=== PATIENT | female | born 1970 | race Caucasian/White ===

== ENCOUNTER 2016-11-05 13:52 | Outpatient (CLI) ==
[2015-12-09 17:20] VITALS: BMI 23.0
[2016-11-05 15:01] LABS: ERYTHROCYTE SEDIMENTATION RATE 21 mm/hr (0-20); ESR INTERNAL QC INTERNAL QC VALID
[2016-11-05 15:52] LABS: ALBUMIN 4.2 g/dL (3.4-5.0); ALBUMIN/GLOBULIN RATIO 1.27; ANION GAP 14.1; BILIRUBIN,TOTAL 0.33 mg/dL (0.00-1.20); BUN/CREATININE RATIO 19.76; CALCIUM 9.9 mg/dL (8.2-10.2); CHOL/HDL RATIO 5.4 (4.5-5.5); CREATININE 0.86 mg/dL (0.60-1.30); FOLATE 15.2 ng/mL (3.1-20.5); MAGNESIUM 2.3 mg/dL (1.7-2.2); POTASSIUM 4.1 mmol/L (3.5-5.10); TOTAL PROTEIN 7.5 g/dL (6.4-8.2)
[2016-11-06 08:30] LABS: RHEUMATOID ARTHRITIS FACTOR < 10.0 IU/mL (0.0-13.9)
[2016-11-07 08:34] LABS: ANTI-NUCLEAR ANTIBODY SCREEN Negative (Negative)
== END 2016-11-05 13:53 | disposition home or self-care (01) ==
LOC: LAB 13:52
PROVIDERS: ATTEND Psychiatry & Neurology Neurology
DX: G43.119 Migraine with aura, intractable, without status migrainosus (principal)
CPT/HCPCS: 36415; 80053; 80061; 82607; 82746; 83735; 84439; 85651; 86038; 86430

== ENCOUNTER 2016-12-13 13:57 | Outpatient (CLI) ==
[2015-12-09 17:20] VITALS: BMI 23.0
[2016-12-13 14:35] LABS: BASOPHILS % (AUTO) 0.2 % (0.0-3.0); EOSINOPHILS % (AUTO) 0.3 % (0.0-7.0); HEMATOCRIT 37.9 % (37.0-47.0); IMMATURE GRANULOCYTE % (AUTO) 0.3 % (0.0-5.0); LYMPHOCYTES # (AUTO) 1.4 K/uL (0.60-3.4); LYMPHOCYTES % (AUTO) 14.6 (10.0-50.0); MEAN CORPUSCULAR HEMOGLOBIN 31.6 pg (27.0-31.0); MEAN CORPUSCULAR HGB CONC 34.3 (31.8-35.4); MONOCYTES # (AUTO) 0.3 K/uL (0.4-2.0); MONOCYTES % (AUTO) 2.7 (0-10); NEUTROPHILS # (AUTO) 7.9 K/ul (2.0-6.9); NEUTROPHILS % (AUTO) 81.9; PLATELET COUNT 204 10^3/uL (140-440); RED BLOOD COUNT 4.12 10^6/ul (4.20-5.40); WHITE BLOOD COUNT 9.63 K/ul (4.6-10.2)
--- NOTE | 2016-12-13 14:53 | CT ---
EXAM: CT chest without contrast HISTORY: Pain and shortness of breath with cough with pain localized to shoulder blades. COMPARISON: Chest x-ray 05/17/[address] abdomen 02/06/2016 TECHNIQUE: Serial axial images of the chest were obtained from the lung apices to the upper abdomen without contrast. These were viewed in multiple planes. FINDINGS: The thyroid is normal. The visualized vessels are unremarkable without aneurysm or steno sis. The heart is normal in size without pericardial effusion. There are nonpathologically enlarge d mediastinal or hilar lymph nodes. There is no pneumothorax or pleural effusion. Calcified granuloma is noted in the right upper lobe on image 31. Subsegmental right basilar atelectasis is present. Left upper lobe calcified granulom a is present. Ground-glass 2 mm nodule in the right upper lobe is noted on image 26. The airways ar e patent. No acute consolidation, ground-glass or mass is identified. Soft tissues in the upper abdomen demonstrate prior cholecystectomy. There is mild atherosclerotic disease present. The osseous structures are unremarkable. IMPRESSION: 1. No acute cardiopulmonary process or consolidation is identified. 2. 2 mm ground-glass nodule in the right upper lobe is likely postinflammatory with minimal subsegm ental right basilar atelectasis. 3. Prior cholecystectomy.
[2016-12-13 15:22] LABS: ALBUMIN 3.9 g/dL (3.4-5.0); ALBUMIN/GLOBULIN RATIO 1.15; ANION GAP 12.2; BILIRUBIN,TOTAL 0.25 mg/dL (0.00-1.20); BUN/CREATININE RATIO 13.75; CALCIUM 9.2 mg/dL (8.2-10.2); CHOL/HDL RATIO 5.6 (4.5-5.5); CREATININE 0.8 mg/dL (0.60-1.30); POTASSIUM 4.2 mmol/L (3.5-5.10); TOTAL PROTEIN 7.3 g/dL (6.4-8.2)
== END 2016-12-13 13:58 | disposition home or self-care (01) ==
LOC: RAD 13:57
PROVIDERS: ATTEND Emergency Medicine
DX: R06.02 Shortness of breath (principal); R52 Pain, unspecified; E78.5 Hyperlipidemia, unspecified; I65.29 Occlusion and stenosis of unspecified carotid artery
CPT/HCPCS: 36415; 80053; 80061; 82306; 82607; 83036; 84443; 85025

== ENCOUNTER 2016-12-14 14:03 | Outpatient (CLI) ==
[2015-12-09 17:20] VITALS: BMI 23.0
--- NOTE | 2016-12-14 16:07 | CT ---
EXAM: CT thoracic spine without contrast HISTORY: Back pain COMPARISON: None TECHNIQUE: CT thoracic spine performed without intravenous contrast. Coronal and sagittal reformat phoebe images obtained. FINDINGS: Bones appear demineralized. The vertebral bodies normal height. No fracture. No sublux ation. Mild chronic multilevel discogenic degenerative disease with multilevel intervertebral disc space narrowing and mild multilevel marginal osteophyte formation. Central canal grossly patent. Th ere is mild atherosclerosis. There is granulomatous calcification noted. IMPRESSION: 1. No fracture or subluxation. 2. Mild chronic discogenic degenerative disease. 3. Bones appear demineralized
== END 2016-12-14 14:04 | disposition home or self-care (01) ==
LOC: RAD 14:03
PROVIDERS: ATTEND Emergency Medicine
DX: R06.02 Shortness of breath (principal); M54.9 Dorsalgia, unspecified

== ENCOUNTER 2017-02-07 11:23 | Outpatient (CLI) ==
[2015-12-09 17:20] VITALS: BMI 23.0
--- NOTE | 2017-02-07 12:03 | DI ---
EXAM: Three x-rays of the right foot. Comparison: None available. Reason for exam: Pain. FINDINGS: No acute fracture or dislocation. The joint spaces are well maintained. No suspicious a ppearing calcific soft tissue densities. Impression: No acute fracture or dislocation in the right foot.
== END 2017-02-07 11:24 | disposition home or self-care (01) ==
LOC: LAB 11:23
PROVIDERS: ATTEND Emergency Medicine
DX: M79.671 Pain in right foot (principal)
CPT/HCPCS: 36415; 84550

== ENCOUNTER 2017-02-13 07:51 | Outpatient (CLI) ==
[2015-12-09 17:20] VITALS: BMI 23.0
--- NOTE | 2017-02-13 09:02 | CT ---
EXAM: CT cervical spine without contrast. HISTORY: Neck pain. COMPARISON: None available. TECHNIQUE: Multiple axial images of the cervical spine were obtained without intravenous contrast. Images were reformatted in the sagittal and coronal planes. FINDINGS: There is approximately 0.2 cm retrolisthesis of C4 on C5. The alignment is otherwise nor mal. There is straightening of the normal lordosis. Vertebral body heights are maintained. Disc h eights are grossly normal. No fracture identified. Paravertebral soft tissues are without acute ab normality. C2-3: No neural compromise. C3-4: Disc osteophyte formation, uncovertebral hypertrophy and facet arthropathy with mild neural f oraminal narrowing. C4-5: Disc osteophyte formation, uncovertebral hypertrophy and facet arthropathy with flattening of the ventral thecal sac and mild right and moderate left neural foraminal narrowing. C5-6: Disc osteophyte formation, uncovertebral hypertrophy and facet arthropathy with moderate neur al foraminal narrowing. C6-7: Disc osteophyte formation, uncovertebral hypertrophy and facet arthropathy with moderate left neural foraminal narrowing. C7-T1: No neural compromise. IMPRESSION: 1. No fracture. 2. Multilevel degenerative changes as described.
== END 2017-02-13 07:52 | disposition home or self-care (01) ==
LOC: RAD 07:51
PROVIDERS: ATTEND Emergency Medicine
DX: M54.2 Cervicalgia (principal)

== ENCOUNTER 2017-09-17 12:59 | Outpatient (CLI) ==
[2015-12-09 17:20] VITALS: BMI 23.0
[2017-09-17 13:30] LABS: BASOPHILS % (AUTO) 0.6 % (0.0-3.0); EOSINOPHILS # (AUTO) 0.3 K/ul (0.0-0.7); EOSINOPHILS % (AUTO) 4.3 % (0.0-7.0); HEMATOCRIT 40.1 % (37.0-47.0); HEMOGLOBIN 13.8 g/dl (12.0-16.0); IMMATURE GRANULOCYTE % (AUTO) 0.3 % (0.0-5.0); LYMPHOCYTES # (AUTO) 1.9 K/uL (0.60-3.4); LYMPHOCYTES % (AUTO) 28.2 (10.0-50.0); MEAN CORPUSCULAR HEMOGLOBIN 31.9 pg (27.0-31.0); MEAN CORPUSCULAR HGB CONC 34.4 (31.8-35.4); MEAN CORPUSCULAR VOLUME 92.8 fl (81.0-99.0); MONOCYTES # (AUTO) 0.3 K/uL (0.4-2.0); MONOCYTES % (AUTO) 4.6 (0-10); NEUTROPHILS # (AUTO) 4.2 K/ul (2.0-6.9); PLATELET COUNT 211 10^3/uL (140-440); RED BLOOD COUNT 4.32 10^6/ul (4.20-5.40)
[2017-09-17 14:09] LABS: ALBUMIN 3.7 g/dL (3.4-5.0); ALBUMIN/GLOBULIN RATIO 1.06; ANION GAP 13.6; BILIRUBIN,TOTAL 0.13 mg/dL (0.00-1.20); BUN/CREATININE RATIO 10.34; CALCIUM 9.5 mg/dL (8.2-10.2); CHOL/HDL RATIO 9.9 (4.5-5.5); CREATININE 0.87 mg/dL (0.60-1.30); POTASSIUM 4.6 mmol/L (3.5-5.10); TOTAL PROTEIN 7.2 g/dL (6.4-8.2)
--- NOTE | 2017-09-17 14:26 | CT ---
EXAM: CT chest without contrast HISTORY: 2 mm right lung nodule COMPARISON: 12/13/2016 TECHNIQUE: CT chest performed without intravenous contrast. Coronal and sagittal reformatted images obtained. FINDINGS: Thyroid and thoracic inlet appear normal. Heart normal in size. Coronary calcifications. No pericardial effusion. Aorta normal in caliber. Esophagus unremarkable. Evaluation for lymphad enopathy limited without contrast. No lymphadenopathy identified. Visualized portion upper abdomen demonstrates no acute abnormality. Patient status post cholecystectomy. No acute abnormalities of t he bones. Central airway patent. No airspace consolidation. No pleural effusion. No pneumothorax. Granulomatous calcification right lung. Stable 2 mm pulmonary nodule right lung image 28. Minimal 3 mm nodularity image 27 and coronal and 37 located in the bronchiole likely minimal mucous plugging IMPRESSION: 1. Stable 2 mm pulmonary nodule right lung image 28, likely post inflammatory. Additional granuloma tous calcification present. 2. Minimal 3 mm endobronchial nodularity right lung, likely minimal mucous plugging. Recommend CT ch est follow-up 6 months to ensure resolution. 3. No airspace consolidation.
== END 2017-09-17 13:00 | disposition home or self-care (01) ==
LOC: RAD 12:59
PROVIDERS: ATTEND Internal Medicine
DX: E78.5 Hyperlipidemia, unspecified (principal); F41.9 Anxiety disorder, unspecified; I10 Essential (primary) hypertension; R91.8 Other nonspecific abnormal finding of lung field
CPT/HCPCS: 36415; 80053; 80061; 82306; 82607; 83036; 84443; 85025

== ENCOUNTER 2018-01-02 12:50 | Outpatient (CLI) ==
[2015-12-09 17:20] VITALS: BMI 23.0
--- NOTE | 2018-01-02 13:26 | DI ---
EXAM: Two views of the right hip. History: Right hip pain and sciatica Findings: No acute fracture or dislocation. Right hip joint space is preserved. Nonspecific pelvic calcifications are probably phleboliths. Impression: No acute osseous abnormality and no significant degenerative joint disease of the right hip
--- NOTE | 2018-01-02 13:29 | DI ---
EXAM: Three views of the lumbar spine. History: Lower back pain. Comparison: CT lumbar spine 05/08/2016 Findings: Cholecystectomy clips. No acute fractures are seen. Bilateral L5 spondylolysis with 9 mm anterolisthesis of L5 on S1 measures slightly increased compared to the prior study. Moderate to sev ere disc space narrowing at L5-S1 also appears progressed. The other disc space heights are preserve d. Impression: L5 spondylolysis with worsening grade 1 to grade 2 spondylolisthesis of L5 on S1. Progre ssive degenerative disc disease at L5-S1.
== END 2018-01-02 12:51 | disposition home or self-care (01) ==
LOC: RAD 12:50
PROVIDERS: ATTEND Internal Medicine
DX: E78.5 Hyperlipidemia, unspecified (principal); E03.9 Hypothyroidism, unspecified; M54.41 Lumbago with sciatica, right side
CPT/HCPCS: 36415; 80053; 80061; 82607; 83036; 84443; 85025

== ENCOUNTER 2019-03-12 12:07 | Outpatient (CLI) ==
[2015-12-09 17:20] VITALS: BMI 23.0
== END 2019-03-12 12:08 | disposition home or self-care (01) ==
LOC: LAB 12:07
PROVIDERS: ATTEND Internal Medicine
DX: E78.5 Hyperlipidemia, unspecified (principal); I25.10 Atherosclerotic heart disease of native coronary artery without angina pectoris; R73.9 Hyperglycemia, unspecified; E03.9 Hypothyroidism, unspecified
CPT/HCPCS: 36415; 80053; 80061; 83036; 84439; 84443; 85025

== ENCOUNTER 2019-03-18 10:22 | Outpatient (CLI) ==
[2015-12-09 17:20] VITALS: BMI 23.0
--- NOTE | 2019-03-18 11:20 | US ---
EXAM: Carotid ultrasound HISTORY: Stenosis COMPARISON: None TECHNIQUE: Carotid ultrasound was performed using Duplex imaging with latif scale, color, and Doppler imaging performed. FINDINGS: Right carotid: There is mild atherosclerotic plaque in the common carotid and bulb/internal carotid artery. Peak systolic velocity measurement in the right internal carotid artery is 0.69 meters per s econd. End-diastolic velocity measurement in the right internal carotid artery is 0.33 meters per se cond. Right internal to common carotid artery peak systolic velocity ratio is 1.2. Flow in the righ t vertebral artery is antegrade. Left carotid: There is mild atherosclerotic plaque in the common carotid and bulb/internal carotid a rtery. Peak systolic velocity measurement in the left internal carotid artery is 0.75 meters per sec ond. End-diastolic velocity measurement in the left internal carotid artery is 0.37 meters per secon d. Left internal to common carotid artery peak systolic velocity ratio measures 1.5. Flow in the le ft vertebral artery is antegrade. IMPRESSION: 1. Right internal carotid: No evidence for greater than 50% stenosis 2. Left internal carotid: No evidence for greater than 50% stenosis
== END 2019-03-18 10:23 | disposition home or self-care (01) ==
LOC: RAD 10:22
PROVIDERS: ATTEND Internal Medicine
DX: I65.29 Occlusion and stenosis of unspecified carotid artery (principal)

== ENCOUNTER 2019-04-08 16:10 | Emergency (ER) ==
[2019-04-08 16:17] VITALS: BP 136/64; TEMP 98.2; BMI 22.4
--- NOTE | 2019-04-08 17:40 | ED.PDOC ---
General ED Provider: Dr. MADELEINE DEE Chief Complaint: Back Pain Stated Complaint: back pain Time Seen by Physician: 16:10 (seen with gerson at all times ) Mode of Arrival: Walk-In Information Source: Patient Exam Limitations: No limitations Primary Care Provider: YUSUF TOPETE Referred to ED by: Other (ALSO C/O SORE THROAT, COUGH, CONGESTION ) Nursing and Triage Documentation Reviewed and Agree: Yes Does patient meet sepsis criteria?: No System Inflammatory Response Syndrome: Not Applicable Sepsis Protocol: For patient's 13 years and over: Temp is 96.8 and below OR 101 and greater Pulse >90 BPM Resp >20/minute Acutely Altered Mental Status Are patient's symptoms suggestive of a new infection, such as: -Pneumonia -Skin, Soft Tissue -Endocarditis -UTI -Bone, Joint Infection -Implantable Device -Acute Abdominal Infection -Wound Infection -Meningitis -Blood Stream Catheter Infection -Unknown Musculoskeletal Complaint Exam - Back Pain Complaint/Exam Mechanism of Injury: Reports: No known trauma Onset/Duration: 16:10 Symptoms Are: Still present Timing: Constant Episodes Lasting: Minutes Initial Severity: Mild Current Severity: Mild Location: Reports: Discrete Character: Reports: Dull, Aching Aggravating: Reports: None Alleviating: Reports: Rest Associated Signs and Symptoms: Denies: Swelling, Redness, Bruising, Fever, Weakness, Numbness, Tingling, Abdominal pain, Flank pain, Bladder incontinence, Bowel incontinence, Weight loss, Pain with weight bearing Related History: Reports: Similar episode TAD Risk Factors: Reports: None AAA Risk Factors: Reports: None Cauda Equina Risk Factors: Reports: None Epidural Abcess Risk Factors: Reports: None Related Surgical History: Reports: None Focal Tenderness: No Paraspinal Muscle Tenderness: No Paraspinal Muscle Spasm: No Scoliosis: No Lordosis: No Kyphosis: No SLR Test: Right Negative, Left Negative Hip Motion Testing Pain: Right Negative, Left Negative Focal Weakness: Present: None Focal Sensory Loss: Present: None Gait: Present: Normal Differential Diagnoses: Renal Colic, Strain, Sprain Review of Systems - Review Of Systems Constitutional: Reports: Malaise Eyes: Reports: No symptoms Ears, Nose, Mouth, Throat: Reports: No symptoms, Throat pain Respiratory: Reports: Cough Cardiac: Reports: No symptoms GI: Reports: No symptoms : Reports: No symptoms Musculoskeletal: Reports: Back pain Skin: Reports: No symptoms Neurological: Reports: No symptoms Endocrine: Reports: No symptoms Hematologic/Lymphatic: Reports: No symptoms All Other Systems: Reviewed and Negative Past Medical History - Past Medical History Previously Healthy: Yes Endocrine: Reports: Dyslipidemia Cardiovascular: Reports: None Respiratory: Reports: None Hematological: Reports: None Gastrointestinal: Reports: None Genitourinary: Reports: None Neuro/Psych: Reports: None Musculoskeletal: Reports: None Cancer: Reports: None Last Menstrual Period: N/A - Surgical History General Surgical History: Reports: Tubal ligation - Family History Family History: Reports: Unknown - Social History Smoking Status: Former smoker Hx Substance Use: No (occasional marajuana) Alcohol Screening: None - Immunizations Tetanus Shot up to Date: Yes Physical Exam - Physical Exam Appearance: Well-appearing, No pain distress, Well-nourished Eyes: DINESH, EOMI, Conjunctiva clear ENT: Ears normal, Nose normal, Oropharynx normal Respiratory: Airway patent, Breath sounds clear, Breath sounds equal, Respirations nonlabored Cardiovascular: RRR, Pulses normal, No rub, No murmur GI/: Soft, Nontender, No masses, Bowel sounds normal, No Organomegaly Musculoskeletal: Normal strength, ROM intact, No edema, No calf tenderness Skin: Warm, Dry, Normal color Neurological: Sensation intact, Motor intact, Reflexes intact, Cranial nerves intact, Alert, Oriented Psychiatric: Affect appropriate, Mood appropriate Critical Care Note - Critical Care Note Total Time (mins): 0 Course - Course Hematology/Chemistry: 04/08/19 17:45 04/08/19 17:45 Orders, Labs, Meds: Lab Review 04/08/19 04/08/19 04/08/19 17:32 17:41 17:45 WBC 5.35 RBC 4.11 L Hgb 13.0 Hct 38.7 MCV 94.2 MCH 31.6 H MCHC 33.6 RDW Coeff of Verenice 12.1 Plt Count 233 Immature Gran % (Auto) 0.2 Neut % (Auto) 49.4 Lymph % (Auto) 37.6 Pacific % (Auto) 7.5 Eos % (Auto) 4.9 Baso % (Auto) 0.4 Immature Gran # (Auto) 0.0 Neut # (Auto) 2.7 Lymph # (Auto) 2.0 Pacific # (Auto) 0.4 Eos # (Auto) 0.3 Baso # (Auto) 0.0 Sodium Potassium Chloride Carbon Dioxide Anion Gap BUN Creatinine Estimated GFR (MDRD) BUN/Creatinine Ratio Glucose Calcium Total Bilirubin AST ALT Alkaline Phosphatase Total Protein Albumin Globulin Albumin/Globulin Ratio Urine Color Yellow Urine Clarity Clear Urine pH 6.0 Ur Specific Buck[place] 1.020 Urine Protein Negative Urine Glucose (UA) Negative Urine Ketones Negative Urine Blood Negative Urine Nitrite Negative Urine Bilirubin Negative Urine Urobilinogen 0.2 Ur Leukocyte Esterase Negative Urine Test Negative 04/08/19 17:45 WBC RBC Hgb Hct MCV MCH MCHC RDW Coeff of Verenice Plt Count Immature Gran % (Auto) Neut % (Auto) Lymph % (Auto) Pacific % (Auto) Eos % (Auto) Baso % (Auto) Immature Gran # (Auto) Neut # (Auto) Lymph # (Auto) [place] # (Auto) Eos # (Auto) Baso # (Auto) Sodium 139.2 Potassium 4.23 Chloride 104.2 Carbon Dioxide 25.3 Anion Gap 13.93 BUN 17.9 H Creatinine 0.83 Estimated GFR (MDRD) 73.00 BUN/Creatinine Ratio 21.56 Glucose 83.0 Calcium 9.81 Total Bilirubin 0.52 AST 25.7 ALT 20.3 Alkaline Phosphatase 93.0 Total Protein 7.70 Albumin 4.91 Globulin 2.79 Albumin/Globulin Ratio 1.75 Urine Color Urine Clarity Urine pH Ur Specific [place] Urine Protein Urine Glucose (UA) Urine Ketones Urine Blood Urine Nitrite Urine Bilirubin Urine Urobilinogen Ur Leukocyte Esterase Urine Test Orders Category Date Time Status CBC W/ AUTO DIFF Stat LAB 04/08/19 17:45 Completed COMPREHENSIVE METABOLIC PANEL Stat LAB 04/08/19 17:45 Completed MOLECULAR GROUP A STREP Stat LAB 04/08/19 17:41 Completed URINALYSIS C & S IF INDICATED Stat LAB 04/08/19 17:41 Completed URINE Stat LAB 04/08/19 17:32 Completed CHEST, 2 VIEWS PA & LAT Stat RADS 04/08/19 17:[address] ABD/PEL WO RENAL STONE PROT Stat RADS 04/08/19 17:[address] LUMBAR SPINE W/O CONTRAST Stat RADS 04/08/19 17:37 Completed Vital Signs: Temp Pulse Resp BP Pulse Ox 04/08/19 16:10 98.2 F 72 20 136/64 97 Departure - Departure Time of Disposition: 18:00 Disposition: HOME SELF-CARE Discharge Problem: Backache Back pain Qualifiers: Back pain location: low back pain Chronicity: acute Back pain laterality: right Sciatica presence: without sciatica Qualified Code(s): M54.5 - Low back pain Instructions: Back Pain (ED) Condition: Good Pt referred to PMD for follow-up: Yes IPMP verified?: No Additional Instructions: Please call your Family Physician as soon as possible to schedule a follow-up appointment. Prescriptions: Hydrocodone Bit/Acetaminophen [[place] 7.5-325] 1 each PO Q6HR #7 tablet Allergies/Adverse Reactions: Allergies acetaminophen [From Lortab] Adverse Reaction (Verified 04/10/19 16:15) hydrocodone [From Lortab] Adverse Reaction (Verified 04/10/19 16:15) tramadol Adverse Reaction (Verified 04/10/19 16:15) Home Medications: Ambulatory Orders Aspirin [Aspirin EC] 81 mg PO DAILY 04/08/19 Atorvastatin Calcium [Lipitor] 40 mg PO DAILY 04/08/19 Clonazepam [Klonopin] 0.25 mg PO DIRECTED PRN 04/08/19 Hydrocodone Bit/Acetaminophen [[place] 7.5-325] 1 each PO Q6HR #7 tablet 04/08/19 Levothyroxine Sodium 50 mcg PO DAILY 04/08/19 Tramadol HCl 50 mg PO 2-3XD #14 tablet 04/10/19 Disposition Discussed With: Patient
[2019-04-08 18:13] LABS: URINE PREGNANCY TEST NEGATIVE (NEGATIVE)
--- NOTE | 2019-04-08 19:01 | DI ---
EXAM: Two-view chest HISTORY: Cough TECHNIQUE: Frontal and lateral views of the chest were obtained. Comparison 05/17/2014. FINDINGS: The heart is normal size. Lungs are clear. The pulmonary vasculature appears normal. Th e costophrenic angles are sharp. The osseous structures and mediastinal contours are normal. IMPRESSION: No active cardiopulmonary disease.
--- NOTE | 2019-04-08 19:08 | CT ---
EXAM: CT scan of the lumbar spine without contrast HISTORY: Pain TECHNIQUE: Helical imaging of the lumbar spine was performed without contrast. Sagittal and coronal reconstructions and axial images were provided for interpretation. Comparison 05/08/2016 CT scan of the lumbar spine. FINDINGS: There is no evidence of acute compression fracture. The paraspinal soft tissues are edgar l. There is anterior subluxation of the L5 on the S1 vertebral body measuring 7 mm. Bilateral pars defects are seen at L5. The paraspinal soft tissues are normal. The sacrum appears intact. Five dani mbar-type vertebral bodies are identified. There appears to be interval development of mild collapse of the superior endplate of the L4 vertebral body by approximately 20%. There is no retropulsion in to the spinal canal. No other compression deformities are seen. Segmental analysis: T12-L1: The central canal and neural foramina appear patent. L1-L2: The central canal and neural foramina appear patent. L2-L3: The central canal and neural foramina appear patent. L3-L4: The central canal and neural foramina appear patent. L4-L5: There is mild disc bulge. The central canal and neural foramina appear patent. L5-S1: The central canal and lateral recesses appear patent. There is moderate stenosis of the neur al foramina bilaterally. IMPRESSION: Interval development of mild compression deformity of the L4 vertebral body with approxi mate 20% collapse of the superior endplate of L4. Findings are age indeterminate. MRI of the lumbar spine or nuclear medicine bone scan can be obtained for further evaluation. Acute compression fract ure of L4 is suspected. There is no central canal stenosis. Grade 1 spondylolisthesis seen at L5-S1 measuring 7 mm. The findings are associated with moderate bi lateral foraminal stenosis at L5-S1.
--- NOTE | 2019-04-08 19:09 | CT ---
EXAM: CT scan abdomen pelvis without contrast HISTORY: Abdominal pain COMPARISON: None. FINDINGS: Contiguous axial images obtained through the abdomen pelvis without contrast utilize colli mation. Sagittal and coronal reconstructions were imaged and reviewed.. The visualized lung bases a re clear. There has been prior cholecystectomy. The liver, pancreas, spleen and adrenal glands have normal unenhanced CT appearance. The kidneys are morphologically normal.. Prominent thickened smal l bowel loops are seen in the left upper quadrant suggestive of enteritis. Dense atherosclerotic aquiles nges are seen involving the aorta without a formation. There is a normal appendix Minimal calcifica tion is seen in relation to the right lateral bladder wall which is otherwise unremarkable. There is no free fluid or inflammatory changes. There is grade 1 spondylolisthesis L5/S1 secondary to bilate ral pars defect. IMPRESSION: Abnormal small bowel left upper quadrant suggestive of enteritis. ASVD without aneurysm. Status post cholecystectomy
== END 2019-04-08 19:28 | disposition home or self-care (01) ==
LOC: ED 16:10
DX: M54.5 Low back pain (principal); J02.9 Acute pharyngitis, unspecified; R05 Cough; R09.89 Other specified symptoms and signs involving the circulatory and respiratory systems
CPT/HCPCS: 36415; 80053; 81001; 81025; 85025; 87651; 99283

== ENCOUNTER 2019-04-10 12:52 | Emergency (ER) ==
[2019-04-10 12:56] VITALS: BP 149/88; TEMP 98.4; BMI 23.1
--- NOTE | 2019-04-10 15:47 | CT ---
EXAM: CT LUMBAR SPINE HISTORY: Back pain TECHNIQUE: CT lumbar spine without contrast. 3-mm axial sections. Coronal and sagittal reformation s. COMPARISON: 04/08/2019 FINDINGS: No fracture, loss of vertebral body height or scoliosis is identified. Sacroiliac joints are within normal limits. There is early facet arthropathy and degenerative disc disease of the lower spine wit h mild central canal stenosis at L4/L5. There is about 6 mm of anterior spondylolisthesis of L5 on S 1 secondary to chronic bilateral pars defects at L5. No paraspinal fluid collection. Incidental not e of atherosclerotic disease IMPRESSION: 1. Pars defects bilaterally at L5 with listhesis similar to that previously seen. Early degenerativ e changes of the lower spine facets and discs.
--- NOTE | 2019-04-10 16:22 | ED.PDOC ---
General ED Provider: Dr. MADELEINE DEE Chief Complaint: Back Pain Stated Complaint: low back pain lumbar spine was sen 3 days ago for the same issue no new injury Time Seen by Physician: 13:00 Mode of Arrival: Walk-In Information Source: Patient Exam Limitations: No limitations Primary Care Provider: YUSUF TOPETE Nursing and Triage Documentation Reviewed and Agree: Yes Does patient meet sepsis criteria?: No If yes, has appropriate treatment been initiated?: No System Inflammatory Response Syndrome: Not Applicable Sepsis Protocol: For patient's 13 years and over: Temp is 96.8 and below OR 101 and greater Pulse >90 BPM Resp >20/minute Acutely Altered Mental Status Are patient's symptoms suggestive of a new infection, such as: -Pneumonia -Skin, Soft Tissue -Endocarditis -UTI -Bone, Joint Infection -Implantable Device -Acute Abdominal Infection -Wound Infection -Meningitis -Blood Stream Catheter Infection -Unknown Musculoskeletal Complaint Exam - Back Pain Complaint/Exam Mechanism of Injury: Reports: No known trauma Onset/Duration: chronic pain worse past 3 days Symptoms Are: Still present Timing: Constant Episodes Lasting: Days Initial Severity: Moderate Current Severity: Moderate Location: Reports: Discrete Character: Reports: Aching Aggravating: Reports: None Alleviating: Reports: None Associated Signs and Symptoms: Denies: Swelling, Redness, Bruising, Fever, Weakness, Numbness, Tingling, Abdominal pain, Flank pain, Bladder incontinence, Bowel incontinence, Weight loss, Pain with weight bearing Related History: Reports: Similar episode TAD Risk Factors: Reports: None AAA Risk Factors: Reports: None Cauda Equina Risk Factors: Reports: None Epidural Abcess Risk Factors: Reports: None Related Surgical History: Reports: None Focal Tenderness: No Paraspinal Muscle Tenderness: No Paraspinal Muscle Spasm: Yes Scoliosis: No Lordosis: No Kyphosis: No SLR Test: Right Positive, Left Negative Hip Motion Testing Pain: Right Negative, Left Negative Focal Weakness: Present: None Focal Sensory Loss: Present: None Gait: Present: Normal Differential Diagnoses: Arthritis, Other (pars defect) Review of Systems - Review Of Systems Constitutional: Reports: No symptoms Eyes: Reports: No symptoms Ears, Nose, Mouth, Throat: Reports: No symptoms Respiratory: Reports: No symptoms Cardiac: Reports: No symptoms GI: Reports: No symptoms : Reports: No symptoms Musculoskeletal: Reports: Back pain Skin: Reports: No symptoms Neurological: Reports: No symptoms Endocrine: Reports: No symptoms Hematologic/Lymphatic: Reports: No symptoms All Other Systems: Reviewed and Negative Past Medical History - Past Medical History Previously Healthy: Yes Endocrine: Reports: Dyslipidemia Cardiovascular: Reports: None Respiratory: Reports: None Hematological: Reports: None Gastrointestinal: Reports: None Genitourinary: Reports: None Neuro/Psych: Reports: None Musculoskeletal: Reports: None Cancer: Reports: None Last Menstrual Period: Post Menopausal - Surgical History General Surgical History: Reports: Tubal ligation - Family History Family History: Reports: Unknown - Social History Smoking Status: Never smoker Hx Substance Use: No Alcohol Screening: None - Immunizations Tetanus Shot up to Date: Yes Physical Exam - Physical Exam Appearance: Well-appearing, No pain distress, Well-nourished Eyes: DINESH, EOMI, Conjunctiva clear ENT: Ears normal, Nose normal, Oropharynx normal Respiratory: Airway patent, Breath sounds clear, Breath sounds equal, Respirations nonlabored Cardiovascular: RRR, Pulses normal, No rub, No murmur GI/: Soft, Nontender, No masses, Bowel sounds normal, No Organomegaly Musculoskeletal: Normal strength, ROM intact, No edema, No calf tenderness Skin: Warm, Dry, Normal color Neurological: Sensation intact, Motor intact, Reflexes intact, Cranial nerves intact, Alert, Oriented Psychiatric: Affect appropriate, Mood appropriate Interpretation - Radiology Interpretation Radiology Interpretation By: Radiologist Radiology Results: No acute changes (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) Re-Evaluation - Re-Evaluation Time of Re-Evaluation: 16:23 Status: Unchanged Vital Signs Stable: Yes Pain Level: 5/10 Appearance: NAD Lungs: Clear Skin: Warm and Dry Neuro: Alert and Oriented X3 CV: RRR Critical Care Note - Critical Care Note Total Time (mins): 0 Course - Course Orders, Labs, Meds: Orders Category Date Time Status CT LUMBAR SPINE W/O CONTRAST Stat RADS 04/10/19 14:42 Completed Vital Signs: Temp Pulse Resp BP Pulse Ox 04/10/19 12:52 98.4 F 70 16 149/88 H 98 Departure - Departure Time of Disposition: 16:24 Disposition: HOME SELF-CARE Discharge Problem: Back pain Qualifiers: Back pain location: low back pain Chronicity: acute Back pain laterality: right Sciatica presence: without sciatica Qualified Code(s): M54.5 - Low back pain Instructions: Low Back Strain (ED), Arthralgia (ED), Back Pain (ED) Condition: Good Pt referred to PMD for follow-up: Yes IPMP verified?: No Additional Instructions: Please call your Family Physician as soon as possible to schedule a follow-up appointment. Prescriptions: Tramadol HCl 50 mg PO 2-3XD #14 tablet Allergies/Adverse Reactions: Allergies acetaminophen [From Lortab] Adverse Reaction (Verified 04/10/19 16:15) hydrocodone [From Lortab] Adverse Reaction (Verified 04/10/19 16:15) tramadol Adverse Reaction (Verified 04/10/19 16:15) Home Medications: Ambulatory Orders Aspirin [Aspirin EC] 81 mg PO DAILY 04/08/19 Atorvastatin Calcium [Lipitor] 40 mg PO DAILY 04/08/19 Clonazepam [Klonopin] 0.25 mg PO DIRECTED PRN 04/08/19 Hydrocodone Bit/Acetaminophen [[place] 7.5-325] 1 each PO Q6HR #7 tablet 04/08/19 Levothyroxine Sodium 50 mcg PO DAILY 04/08/19 Tramadol HCl 50 mg PO 2-3XD #14 tablet 04/10/19
== END 2019-04-10 16:32 | disposition home or self-care (01) ==
LOC: ED 12:52
DX: M54.5 Low back pain (principal)
CPT/HCPCS: 99282